=== PATIENT | male | born 1950 | race African-American/Black ===

== ENCOUNTER 2022-06-25 12:00 | Emergency (ER) | payer OTHER ==
[~2022-06-25] VITALS: Ht 180.3 cm; Wt 80.0 kg
[2022-06-25 12:37] LABS: Eosinophils # (auto) 0.1 10 ^3/uL (0-0.8); Hemoglobin 13.1 g/dL (13.5-17.5); Mean Corpuscular Volume 84.7 fL (80.0-100.0)
[2022-06-25 12:39] LABS: Basophils # (auto) 0.1 10 ^3/uL (0-0.2); Basophils % (auto) 0.8 % (0.0-2.0); Eosinophils % (auto) 1.2 % (0.0-7.0); Hematocrit 41.1 % (41.0-53.0); Lymphocytes # (auto) 3.1 10 ^3/uL (0.4-5.4); Lymphocytes % (auto) 44.3 % (10.0-50.0); Mean Corpuscular Hemoglobin 27.1 pg (28.0-32.0); Mean Corpuscular Hgb Conc. 31.9 g/dL (32.0-36.0); Monocytes # (auto) 0.4 10 ^3/uL (0-1.3); Monocytes % (auto) 6.4 % (0.0-12.0); Neutrophils # (auto) 3.3 10 ^3/uL (1.6-8.6); Neutrophils % (auto) 47.3 % (37.0-80.0); Red Blood Cells 4.85 10^6/uL (4.5-5.90); Red Cell Distribution Width 15.6 % (11.8-14.3)
[2022-06-25] MEDS ORDERED: IOHEXOL 350 MG/ML 100ML IJ ONE (12:44)
[2022-06-25 12:49] LABS: Albumin 4.1 g/dL (3.4-5.0); Calcium 9.4 mg/dL (8.5-10.1)
[2022-06-25 12:52] LABS: BUN/Creatinine Ratio 17.4; Bilirubin, Total 1.1 mg/dL (0.2-1.0); Total Protein 7.4 g/dL (6.4-8.2)
[2022-06-25 15:26] VITALS: BP 138/89
== END 2022-06-25 15:49 | disposition short-term general hospital (02) ==
LOC: ER 12:00
DX: I24.9 Acute ischemic heart disease, unspecified (principal); I71.01 Dissection of thoracic aorta; I10 Essential (primary) hypertension; F17.210 Nicotine dependence, cigarettes, uncomplicated; F12.10 Cannabis abuse, uncomplicated
CPT/HCPCS: 36415; 71045; 71260; 74177; 80053; 84484; 85025; 93005; 99285; Q9967